=== PATIENT | female | born 1970 | race Caucasian/White ===

== ENCOUNTER 2021-07-18 05:54 | Outpatient (CLI) | payer BC, SELFPAY ==
--- NOTE | 2021-07-18 06:03 | USCV_ITS ---
Kathy Jara Age: 51 Gender: F : 1970 Exam Date: 07/18/2021 06:14 Ordering Phys: Ryland Weinstein MD Technologist: DESI Exam Location: [facility] [place] Indication: Dyspnea on exertion, lower extremity edema, bilateral BP: 120 / 85 HR: 106 Rhythm: Sinus Technical Quality: Adequate MEASUREMENTS (Male / Female) Normal Values 2D ECHO LV Diastolic Diameter PLAX 3.7 cm 4.2 - 5.9 / 3.9 - 5.3 cm LV Systolic Diameter PLAX 2.6 cm IVS Diastolic Thickness 0.8 cm 0.6 - 1.0 / 0.6 - 0.9 cm IVS Systolic Thickness 1.4 cm LVPW Diastolic Thickness 1.1 cm 0.6 - 1.0 / 0.6 - 0.9 cm LVPW Systolic Thickness 1.5 cm RV Chamber Size 2.1 cm LVOT Diameter 2.0 cm LV Ejection Fraction 2D Teich 55.1 % LV Ejection Fraction MOD 2C 66.8 % LV Ejection Fraction 2C AL 66.0 % LA Diameter 1.9 cm LA Width 3.0 cm LA Height 4.3 cm RA Width 3.0 cm RA Height 4.4 cm Aorta at Sinotubular Diameter 1.9 cm IVC Diameter 2.0 cm M-MODE Aortic Annulus Diameter 2.6 cm LA Ao Ratio MM 0.8 MV E Point Septal Separation 0.5 cm DOPPLER AV Peak Velocity 147.0 cm/s LVOT Peak Velocity 140.0 cm/s AV Area Cont Eq vti 3.3 cm squared AV Area Cont Eq pk 3.1 cm squared MV Area PHT 5.0 cm squared MV E' Velocity 61.5 cm/s Mitral E to LV E' Lateral Ratio 6.7 TR Peak Velocity 291.3 cm/s TR Peak Gradient 33.9 mmHg TR Mean Velocity 248.5 cm/s TR Mean Gradient 26.3 mmHg TR Velocity Time Integral 77.7 cm Right Atrial Pressure 3.0 mmHg Pulmonary Artery Systolic Pressu 36.9 mmHg PV Peak Velocity 116.0 cm/s RV Acceleration Time 0.1 s RV Ejection Time 0.3 s RV AcT/ET 0.5 FINDINGS Left Ventricle Normal left ventricular size. LV systolic function is normal with EF of 55-60%. No regional wall motion abnormalities. Right Ventricle The right ventricle is normal in size and function. Right Atrium The right atrium is normal in size. Left Atrium The left atrium is normal in size. Mitral Valve Structurally normal mitral valve without significant stenosis or prolapse. There is mild mitral regurgitation. Aortic Valve Not well visualized. No significant stenosis. There is no aortic regurgitation. Tricuspid Valve Grossly normal. Mild tricuspid regurgitation. RVSP is 35- 40mmHg. This is consistent with mild pulmonary hypertension Pulmonic Valve Not well visualized. Pericardium Normal pericardium without effusion. Aorta Normal ascending aorta dimension. IVC CONCLUSIONS LV systolic function is normal with EF of 55-60% Mild mitral regurgitation Mild tricuspid regurgitation. Mild pulmonary hypertension No comparison studies are available Kali Jimenez MD (Electronically Signed) Final Date: 22 July 2021 22:32 S
== END 2021-07-18 05:55 | disposition home or self-care (01) ==
LOC: RAD 05:55
PROVIDERS: Family Provider General Practice; PCP General Practice; Visit Provider Family Medicine
DX: R06.00 Dyspnea, unspecified (principal); R60.0 Localized edema; I08.1 Rheumatic disorders of both mitral and tricuspid valves; I27.20 Pulmonary hypertension, unspecified
CPT/HCPCS: 93306

== ENCOUNTER 2021-07-22 08:45 | Outpatient (CLI) | payer BC, SELFPAY ==
--- NOTE | 2021-07-21 09:42 | NM_ITS ---
WS: [id number] NUCLEAR MEDICINE THYROID UPTAKE AND SCAN HISTORY: HYPERTHYROIDISM COMPARISON: None available. Radionucleotide: 122 uCi Iodine-123 sodium iodide capsule. Oral ingestion. Imaging performed at 24 hours post ingestion of capsule. Marker placed over the chin and suprasternal notch. Homogeneous symmetric distribution throughout the thyroid gland. No area of focal photopenia or incre ased uptake to suggest a hypo or hyperfunctioning nodule. Gland measures approximate 5 cm in length w hich is normal. Thyroid uptake at 24 hours: 63.6%. (Normal uptake at 24 hours 10-30%). NM/NM thyroid uptake multi 03333 IMPRESSION: 1. Increased thyroid uptake. Most typically seen with Graves' disease or a hyp er functioning nodule. 2. The overall size of the gland appears normal with no photopenic or hyperfun ctioning nodules identified.
== END 2021-07-22 08:46 | disposition home or self-care (01) ==
PROVIDERS: Family Provider General Practice; PCP General Practice; Visit Provider Family Medicine
DX: E05.90 Thyrotoxicosis, unspecified without thyrotoxic crisis or storm (principal)
CPT/HCPCS: 78014; A9516

== ENCOUNTER 2021-08-18 09:11 | Outpatient (CLI) | payer BC, SELFPAY ==
--- NOTE | 2021-08-18 09:19 | MM_ITS ---
WS: [id number] SCREENING DIGITAL BREAST TOMOSYNTHESIS MAMMOGRAM WITH CAD HISTORY: SCREENING COMPARISON: 06/28/2006 Bilateral CC and MLO with tomosynthesis and synthetic mammography submitted. Computer aided detection analyzed. Breast composition: The breasts are heterogeneously dense, which may obscure small masses. Well-circu mscribed 9 x 9 mm nodule in the anterior breast at 12:00. Additional well-circumscribed mass upper ou ter quadrant LEFT breast near 2:00 measures 27 x 22 mm. MM/[place] [id number] IMPRESSION: BI-RADS: 0-Incomplete: Need additional imaging evaluation FOLLOW UP: Need Additional Imaging Recommendation: Ultrasound RIGHT breast at 12:00 and LEFT breast at 1:00.
== END 2021-08-18 09:12 | disposition home or self-care (01) ==
LOC: RAD 09:12
PROVIDERS: PCP Family Medicine; Visit Provider Family Medicine
DX: Z12.31 Encounter for screening mammogram for malignant neoplasm of breast (principal)
CPT/HCPCS: 77063; 77067

== ENCOUNTER 2021-09-06 09:11 | Outpatient (CLI) | payer BC, SELFPAY ==
--- NOTE | 2021-09-06 09:35 | US_ITS ---
WS: [id number] ULTRASOUND BILATERAL BREASTs HISTORY: ABNORMAL MAMMO (US ONLY) COMPARISON: 08/18/2021 TECHNIQUE: 2-D and Doppler. RIGHT breast ultrasound, limited. Small cyst at 12:00, 2 cm from the nipple. The largest measures 10 x 10 x 8 mm. There are smaller adjacent cysts. There is an additional ovoid cyst at 11:00, 2 cm from the nipple measuring 14 x 8 x 15 mm. LEFT breast ultrasound, limited. At 2:00, 3 cm from the nipple is an ovoid cyst measuring 26 x 10 x 2 5 mm. There are additional smaller cysts and cluster of cysts. No solid mass. US/US breast BI limited* [id number] IMPRESSION: BI-RADS: 2-Benign FOLLOW-UP: 1 Year Follow-up Benign cysts within each breast correspond to the mammographic abnormalities.
== END 2021-09-06 09:12 | disposition home or self-care (01) ==
LOC: RAD 09:12
PROVIDERS: PCP Family Medicine; Visit Provider Family Medicine
DX: R92.8 Other abnormal and inconclusive findings on diagnostic imaging of breast (principal); N64.89 Other specified disorders of breast
CPT/HCPCS: 76642

== ENCOUNTER 2021-09-12 13:28 | Outpatient (CLI) | payer BC, SELFPAY ==
[2021-09-12 14:42] LABS: Free T4 Free Thyroxine 2.51 ng/dL (0.82-1.77); Thyroid Stimulating Hormone 0.01 uIU/mL (0.27-4.20)
[2021-09-13 07:14] LABS: T3 Total 258 ng/dL (76-181)
[2021-09-13 14:37] LABS: Thyroid Peroxidase Antobodies 868 IU/mL (<9)
== END 2021-09-12 13:29 | disposition home or self-care (01) ==
PROVIDERS: PCP Family Medicine; Visit Provider Internal Medicine
DX: E05.00 Thyrotoxicosis with diffuse goiter without thyrotoxic crisis or storm (principal); R53.83 Other fatigue
CPT/HCPCS: 36415; 84439; 84443; 84480; 86376

== ENCOUNTER 2021-11-14 15:38 | Outpatient (CLI) | payer BC, SELFPAY ==
[2021-11-14 16:45] LABS: Free T4 Free Thyroxine 0.83 ng/dL (0.82-1.77); Thyroid Stimulating Hormone 0.01 uIU/mL (0.27-4.20)
[2021-11-15 09:03] LABS: T3 Total 106 ng/dL (76-181)
== END 2021-11-14 15:39 | disposition home or self-care (01) ==
LOC: LAB 15:40
PROVIDERS: PCP Family Medicine; Visit Provider Internal Medicine
DX: E05.00 Thyrotoxicosis with diffuse goiter without thyrotoxic crisis or storm (principal); R53.83 Other fatigue
CPT/HCPCS: 36415; 84439; 84443; 84480

== ENCOUNTER 2022-02-08 15:38 | Outpatient (CLI) | payer BC, SELFPAY ==
[2022-02-08 17:17] LABS: Free T4 Free Thyroxine 0.59 ng/dL (0.82-1.77); Thyroid Stimulating Hormone 9.91 uIU/mL (0.27-4.20)
[2022-02-11 07:15] LABS: T3 Total 105 ng/dL (76-181)
== END 2022-02-08 15:39 | disposition home or self-care (01) ==
PROVIDERS: PCP Family Medicine; Visit Provider Internal Medicine
DX: E05.00 Thyrotoxicosis with diffuse goiter without thyrotoxic crisis or storm (principal)
CPT/HCPCS: 36415; 84439; 84443; 84480

== ENCOUNTER 2022-02-15 15:29 | Outpatient (CLI) | payer BC, SELFPAY | END 2022-02-15 15:30 | disposition home or self-care (01) | PROVIDERS: PCP Family Medicine; Visit Provider Internal Medicine | DX: E05.90 Thyrotoxicosis, unspecified without thyrotoxic crisis or storm (principal) | CPT/HCPCS: 36415; 84439 ==

== ENCOUNTER 2022-03-02 15:21 | Outpatient (CLI) | payer BC, SELFPAY ==
[2022-03-02 16:32] LABS: Free T4 Free Thyroxine 0.99 ng/dL (0.82-1.77); Thyroid Stimulating Hormone 1.13 uIU/mL (0.27-4.20)
[2022-03-03 23:15] LABS: T3 Total 125 ng/dL (76-181)
== END 2022-03-02 15:22 | disposition home or self-care (01) ==
PROVIDERS: PCP Family Medicine; Visit Provider Internal Medicine
DX: E05.90 Thyrotoxicosis, unspecified without thyrotoxic crisis or storm (principal)
CPT/HCPCS: 36415; 84439; 84443; 84480

== ENCOUNTER 2022-04-26 15:24 | Outpatient (CLI) | payer BC, SELFPAY ==
[2022-04-26 16:39] LABS: Free T4 Free Thyroxine 1.01 ng/dL (0.82-1.77); Thyroid Stimulating Hormone 0.57 uIU/mL (0.27-4.20)
[2022-04-28 06:50] LABS: T3 Total 107 ng/dL (76-181)
== END 2022-04-26 15:25 | disposition home or self-care (01) ==
PROVIDERS: PCP Family Medicine; Visit Provider Internal Medicine
DX: E05.00 Thyrotoxicosis with diffuse goiter without thyrotoxic crisis or storm (principal)
CPT/HCPCS: 36415; 84439; 84443; 84480

== ENCOUNTER 2022-08-01 15:17 | Outpatient (CLI) | payer BC, SELFPAY ==
[2022-08-01 16:29] LABS: Free T4 Free Thyroxine 1.13 ng/dL (0.82-1.77); Thyroid Stimulating Hormone 0.48 uIU/mL (0.27-4.20)
[2022-08-02 10:29] LABS: T3 Total 124 ng/dL (76-181)
== END 2022-08-01 15:18 | disposition home or self-care (01) ==
PROVIDERS: PCP Family Medicine; Visit Provider Internal Medicine
DX: E05.00 Thyrotoxicosis with diffuse goiter without thyrotoxic crisis or storm (principal); R21 Rash and other nonspecific skin eruption; R53.83 Other fatigue
CPT/HCPCS: 36415; 84439; 84443; 84480

== ENCOUNTER 2023-01-09 11:34 | Outpatient (CLI) | payer BC, SELFPAY ==
[2023-01-09 12:35] LABS: Free T4 Free Thyroxine 2.07 ng/dL (0.82-1.77); Thyroid Stimulating Hormone 0.01 uIU/mL (0.27-4.20)
[2023-01-10 10:00] LABS: T3 Total 218 ng/dL (76-181)
== END 2023-01-09 11:35 | disposition home or self-care (01) ==
LOC: LAB 11:38
PROVIDERS: PCP Family Medicine; Visit Provider Internal Medicine
DX: E05.90 Thyrotoxicosis, unspecified without thyrotoxic crisis or storm (principal)
CPT/HCPCS: 36415; 84439; 84443; 84480

== ENCOUNTER 2023-02-21 12:34 | Outpatient (CLI) | payer BC, SELFPAY ==
[2023-02-21 13:34] LABS: Free T4 Free Thyroxine 1.11 ng/dL (0.82-1.77); Thyroid Stimulating Hormone 0.01 uIU/mL (0.27-4.20)
[2023-02-22 10:45] LABS: T3 Total 126 ng/dL (76-181)
== END 2023-02-21 12:35 | disposition home or self-care (01) ==
LOC: LAB 12:36
PROVIDERS: PCP Family Medicine; Visit Provider Internal Medicine
DX: E05.90 Thyrotoxicosis, unspecified without thyrotoxic crisis or storm (principal); E05.00 Thyrotoxicosis with diffuse goiter without thyrotoxic crisis or storm
CPT/HCPCS: 84439; 84443; 84480

== ENCOUNTER 2023-04-23 13:22 | Outpatient (CLI) | payer BC, SELFPAY ==
[2023-04-23 14:41] LABS: Thyroid Stimulating Hormone 0.01 uIU/mL (0.27-4.20)
[2023-04-23 17:14] LABS: Free T4 Free Thyroxine 1.33 ng/dL (0.82-1.77)
[2023-04-24 07:40] LABS: T3 Total 132 ng/dL (76-181)
== END 2023-04-23 13:23 | disposition home or self-care (01) ==
LOC: LAB 13:25
PROVIDERS: PCP Family Medicine; Visit Provider Internal Medicine
DX: E05.00 Thyrotoxicosis with diffuse goiter without thyrotoxic crisis or storm (principal)
CPT/HCPCS: 36415; 84439; 84443; 84480

== ENCOUNTER 2023-07-03 12:53 | Outpatient (CLI) | payer BC, SELFPAY ==
[2023-07-03 14:05] LABS: Free T4 Free Thyroxine 0.87 ng/dL (0.82-1.77); Thyroid Stimulating Hormone 0.37 uIU/mL (0.27-4.20)
[2023-07-04 10:34] LABS: T3 Total 106 ng/dL (76-181)
== END 2023-07-03 12:54 | disposition home or self-care (01) ==
LOC: LAB 12:54
PROVIDERS: PCP Family Medicine; Visit Provider Internal Medicine
DX: E05.90 Thyrotoxicosis, unspecified without thyrotoxic crisis or storm (principal); E05.00 Thyrotoxicosis with diffuse goiter without thyrotoxic crisis or storm; R53.83 Other fatigue
CPT/HCPCS: 36415; 84439; 84443; 84480

== ENCOUNTER 2023-09-11 13:25 | Outpatient (CLI) | payer BC, SELFPAY ==
[2023-09-11 14:42] LABS: Free T4 Free Thyroxine 1.18 ng/dL (0.82-1.77); Thyroid Stimulating Hormone 0.01 uIU/mL (0.27-4.20)
[2023-09-12 12:13] LABS: T3 Total 115 ng/dL (76-181)
== END 2023-09-11 13:26 | disposition home or self-care (01) ==
LOC: LAB 13:25
PROVIDERS: PCP Family Medicine; Visit Provider Internal Medicine
DX: E05.90 Thyrotoxicosis, unspecified without thyrotoxic crisis or storm (principal); E05.00 Thyrotoxicosis with diffuse goiter without thyrotoxic crisis or storm
CPT/HCPCS: 36415; 84439; 84443; 84480

== ENCOUNTER 2024-10-13 14:35 | Outpatient (CLI) | payer BC, SELFPAY ==
[2024-10-13 16:23] LABS: Estmated Average Glucose 111; Hemoglobin A1C 5.5 % (4.0-6.0)
[2024-10-13 16:45] LABS: Free T4 Free Thyroxine 1.30 ng/dL (0.82-1.77); Thyroid Stimulating Hormone 0.01 uIU/mL (0.27-4.20)
== END 2024-10-13 14:36 | disposition home or self-care (01) ==
LOC: LAB 14:36
PROVIDERS: PCP Family Medicine; Visit Provider Internal Medicine
DX: E05.90 Thyrotoxicosis, unspecified without thyrotoxic crisis or storm (principal); R53.83 Other fatigue; E05.00 Thyrotoxicosis with diffuse goiter without thyrotoxic crisis or storm; Z86.32 Personal history of gestational diabetes
CPT/HCPCS: 36415; 83036; 84439; 84443; 84480

== ENCOUNTER 2024-12-15 15:13 | Outpatient (CLI) | payer BC, SELFPAY ==
[2024-12-15 16:42] LABS: Free T4 Free Thyroxine 0.67 ng/dL (0.82-1.77); Thyroid Stimulating Hormone 0.68 uIU/mL (0.27-4.20)
== END 2024-12-15 15:14 | disposition home or self-care (01) ==
LOC: LAB 15:16
PROVIDERS: PCP Family Medicine; Visit Provider Internal Medicine
DX: E05.90 Thyrotoxicosis, unspecified without thyrotoxic crisis or storm (principal); E05.00 Thyrotoxicosis with diffuse goiter without thyrotoxic crisis or storm
CPT/HCPCS: 36415; 84439; 84443; 84480